=== PATIENT | male | born 1990 | race Caucasian/White ===

== ENCOUNTER 2017-07-29 17:50 | Emergency (ER) | payer OTHER ==
[~2017-07-29] VITALS: Ht 177.8 cm; Wt 84.6 kg
[~2017-07-29 17:50] MED LIST: ZLF50 PO
[2017-07-29 17:55] VITALS: TEMP 36.7; Ht 177.8 cm; Wt 84.6 kg
[2017-07-29] MEDS ORDERED: PROPARACAINE HCL 0.5% OP SOLN 15 ML BTL OP STA (18:09)
[2017-07-29] MEDS ORDERED: DIPHTHERIA/TETANUS/PERTUSSIS 0.5 ML SYR/VIAL IM. ONE (19:00)
[2017-07-29] MEDS ORDERED: CIPROFLOXACIN HCL 0.3% OP SOLN 2.5 ML BTL OP ONE (19:00)
--- NOTE | 2017-07-29 19:16 | EMERGENCY ROOM VISIT NOTE ---
ED Visit Note First contact with patient: 18:01 CHIEF COMPLAINT: Foreign body of the eye HISTORY OF PRESENT ILLNESS: This 27-year-old male patient presents to the emergency department complaining of pain and foreign body sensation in the left eye. That occurred at work. He thinks there is a piece of metal in his eye. He was wearing protective eyewear.. There has been a constant moderate pain and irritation, redness and tearing in the eye. The vision has not been decreased over all. The patient does not wear contacts. The patient rates the pain as 6/10. The patient has not had previous injuries to this eye. The patient is unsure of his last tetanus shot REVIEW OF SYSTEMS: A 6 system review of systems was completed with positives and pertinent negatives listed in the HPI. ALLERGIES: No known drug allergies MEDICATIONS: none PMH: Otherwise healthy SOCIAL HISTORY: The patient quit smoking PHYSICAL EXAM: Vital Signs: Reviewed Nurse's notes, vital signs stable. Visual acuity reviewed. Please see nurse's notes. GENERAL: This is a 27-year-old male , in no acute distress, but who is uncomfortable from the eye problem. Well- developed well-nourished. EYES: The pupils are equal round and reactive to light and accommodation. EOMs are full and without tenderness. There is clear discharge from the left eye which is injected. There is a 1 mm piece of metal visible on the cornea at approximately 4:00.. There is no foreign body visible under the eyelid after lid eversion. The anterior chamber is clear. No signs of hyphema. Fluorescein uptake is noted around foreign body EMERGENCY DEPARTMENT COURSE: I examined the patient. Alcaine 2 drops were placed in the patient's left eye. A slit lamp exam was performed as above. Verbal consent was obtained to perform the procedure. The foreign body was removed using a tuberculin syringe. Ciloxan two drops was placed in the patient 's left eye. The patient was discharged home in good condition. DIAGNOSIS: Foreign body with subsequent corneal abrasion of the left eye DISCHARGE INSTRUCTIONS AND TREATMENT: Use Ciloxin two drops in left eye every two hours while awake for two days; then two drops every four hours while awake for three days. Ibuprofen 800 mg and/or Tylenol 1000 mg every 8 hours as needed for pain. You may also alternate these medications for more effective pain relief: Ibuprofen --4 HRS--> Tylenol --4 HRS--> ibuprofen --4 HRS--> Tylenol .... Your pain should be resolving in the next 48 hours. If it is not, please contact the merchandising representative. A number has been provided. Please do not hesitate to return to the emergency department with any new, worsening or concerning symptoms It was a pleasure participating in your care today This chart was completed in part utilizing [employer] Speech Voice Recognition software. Attempts were made to minimize the grammatical errors, random word insertions, pronoun errors and incomplete sentences. Any formal questions or concerns about the content, text or information contained within the body of this dictation should be directly addressed to the provider for clarification.
[2017-07-29 19:34] VITALS: BP 141/71; PULSE 92; O2SAT 98
== END 2017-07-29 19:40 | disposition home or self-care (01) ==
LOC: C.EDB 17:51 → C.EDD 19:40
DX: T15.02XA Foreign body in cornea, left eye, initial encounter (principal); X58.XXXA Exposure to other specified factors, initial encounter; Y99.0 Civilian activity done for income or pay